=== PATIENT | female | born 1990 | race Caucasian/White ===

== ENCOUNTER 2018-07-28 14:19 | Emergency (ER) | payer OTHER ==
[~2018-07-28] VITALS: Ht 152.4 cm; Wt 61.0 kg
[2018-07-28 14:28] VITALS: BP 118/63; PULSE 71; RESP 18; Ht 152.4 cm; Wt 61.0 kg
[2018-07-28] MEDS ORDERED: MECLIZINE 12.5 MG TAB PO ONE (15:00)
[2018-07-28] MEDS ORDERED: ACETAMINOPHEN 325 MG TAB PO ONE (15:00)
[2018-07-28] MEDS ORDERED: ACET500C5 PO (16:05)
[2018-07-28] MEDS ORDERED: CEPH-443 PO (16:05)
[2018-07-28] MEDS ORDERED: MECL-77 PO (16:05)
--- NOTE | 2018-07-28 16:08 | ERD ---
ER Documentation Chief Complaint Chief Complaint dizziness with rt side headache since morning HPI 27-year-old female presents with multiple complaints. She has had intermittent right occipital headaches over the last few months. She had a headache this morning although prior she had some spinning type dizziness patient has recent URIs except for last week. Denies fevers, chest pain, shortness of breath, visual changes, deficits. Pain is worse possibly with moving her neck. Dizziness is worse with moving her head although she does not specify right or left. She denies any dysuria, vaginal bleeding and denies . ROS All systems reviewed and are negative except as per history of present illness. Medications Home Meds Active Scripts Meclizine Hcl* (Meclizine Hcl*) 25 Mg Tablet, 25 MG PO Q8H PRN for DIZZINESS, #15 TAB Prov:ALDO STAFFORD MD 07/28/18 Acetaminophen* (Tylophen*) 500 Mg Capsule, 1 CAP PO Q6H PRN for PAIN AND OR ELEVATED TEMP, #15 CAP Prov:ALDO STAFFORD MD 07/28/18 Cephalexin* (Keflex*) 500 Mg Capsule, 500 MG PO BID for 5 Days, CAP Prov:ALDO STAFFORD MD 07/28/18 Reported Medications [None] No Conflict Check 11/27/09 Allergies Allergies: Coded Allergies: No Known Allergies (Verified Allergy, Mild, 11/27/09) PMhx/Soc Medical and Surgical Hx: pt denies Medical Hx, pt denies Surgical Hx History of Surgery: No Anesthesia Reaction: No Hx Neurological Disorder: No Hx Respiratory Disorders: Yes (POSS ASTHMA STILL TESTING) Hx Cardiac Disorders: No Hx Psychiatric Problems: No Hx Miscellaneous Medical Probl: No Hx Alcohol Use: No Hx Substance Use: No Hx Tobacco Use: No Smoking Status: Never smoker FmHx Family History: No diabetes, No coronary disease, No other Physical Exam Vitals Vital Signs Date Temp Pulse Resp B/P (MAP) Pulse Ox O2 O2 Flow FiO2 Time Delivery Rate 07/28/18 98.1 71 18 118/63 99 14:28 (81) Physical Exam Const: No acute distress Head: Atraumatic Eyes: Normal Conjunctiva ENT: Normal External Ears, Nose and Mouth. Neck: Full range of motion. No meningismus. Mild tenderness at the base of the right cervical area. Resp: Clear to auscultation bilaterally Cardio: Regular rate and rhythm, no murmurs Abd: Soft, non tender, non distended. Normal bowel sounds Skin: No petechiae or rashes Back: No midline or flank tenderness Ext: No cyanosis, or edema Neur: Awake and alert. No significant reproducible vertigo. Negative cover uncover test. Normal gait. No appreciable focal neurologic deficits. Psych: Normal Mood and Affect Results 24 hrs Laboratory Tests Test 07/28/18 15:15 07/28/18 15:18 Urine Color YELLOW Urine Clarity SLIGHTLY CLOUDY Urine pH 6.0 Urine Specific [place] 1.021 Urine Ketones NEGATIVE mg/dL Urine Nitrite NEGATIVE mg/dL Urine Bilirubin NEGATIVE mg/dL Urine Urobilinogen NEGATIVE mg/dL Urine Leukocyte Esterase 1+ Julianne/ul Urine Microscopic RBC 0 /HPF Urine Microscopic WBC 5 /HPF Urine Squamous Epithelial Cells FEW /HPF Urine Bacteria FEW /HPF Urine Mucus FEW /HPF Urine Hemoglobin NEGATIVE mg/dL Urine Glucose NEGATIVE mg/dL Urine Total Protein NEGATIVE mg/dl POC Beta HCG, Qualitative NEGATIVE Current Medications Medications Dose Sig/Amaris Start Time Status Last (Trade) Ordered Route PRN Stop Time Admin Dose Reason Admin Meclizine 25 mg ONCE ONCE 07/28/18 DC 07/28/18 HCl PO 15:00 15:15 (Antivert) 07/28/18 15:01 650 mg ONCE ONCE 07/28/18 DC 07/28/18 Acetaminophen PO 15:00 15:15 (Tylenol 07/28/18 15:01 Tab) Procedures/MDM Esterase with few epithelial cells. hCG is negative. CT brain read as normal. Patient given Tylenol and Antivert. Patient presents with right-sided headache associate with vertigo although uncertain if they are related. Her headache may be due to cervical radicular symptoms. She has signs of UTI and will treat for this although uncertain as the cause of dizziness. She has no signs or symptoms of neurologic deficit, meningitis, central vertigo, additional concerning signs or symptoms. We will treat with Keflex, Tylenol, Antivert, instructions for primary care follow-up and return precautions. The patient was stable with no new complaints during the ER course. Clinically, there is no current evidence to suggest meningitis, sepsis, acute abdomen, pneumonia, stroke, acute coronary syndrome, pulmonary embolism, aortic dissection or any other emergent condition appearing to require further evaluation or hospitalization. Patient counseled regarding my diagnostic impression and care plan. Prior to discharge all questions answered. Pt agrees with treatment plan and understands strict return precautions. Pt is instructed to follow up with primary care provider within 24-48 hours. Precautionary instructions provided including instructions to return to the ER if not improving or for any worsening or changing symptoms or concerns. Disclaimer: Inadvertent spelling and grammatical errors are likely due to EHR/dictation software use and do not reflect on the overall quality of patient care. Also, please note that the electronic time recorded on this note does not necessarily reflect the actual time of the patient encounter. Departure Diagnosis: Primary Impression: UTI (urinary tract infection) Urinary tract infection type: acute cystitis Hematuria presence: without hematuria Qualified Codes: N30.00 - Acute cystitis without hematuria Additional Impressions: Dizziness Vertigo Condition: Stable Patient Instructions: Understanding Urinary Tract Infections (UTIs), Dizziness, Unk Cause, Headache, Unspecified Referrals: DOCTOR,NOT ON STAFF (PCP) Additional Instructions: Urine shows signs of infection we will treat for this. CT is normal. May be pinched nerve in the neck as cause of headache. Drink plenty fluids and rest at home. Recheck for new worsening symptoms with primary care doctor. ALDO STAFFORD MD Jul 28, 2018 16:08
== END 2018-07-28 16:17 | disposition home or self-care (01) ==
LOC: FTE 14:19
DX: N30.00 Acute cystitis without hematuria (principal); R40.2142 Coma scale, eyes open, spontaneous, at arrival to emergency department; R40.2252 Coma scale, best verbal response, oriented, at arrival to emergency department; R40.2362 Coma scale, best motor response, obeys commands, at arrival to emergency department
CPT/HCPCS: 70450; 81001; 81025; Z7610